=== PATIENT | female | born 1945 | race Caucasian/White ===

== ENCOUNTER 2021-08-05 22:45 | Emergency (ER) | payer MEDICARE, SELFPAY ==
[2021-08-05 22:47] VITALS: BP 154/85; PULSE 67; RESP 18; TEMP 36.8; O2SAT 95; BMI 29.2
--- NOTE | 2021-08-05 22:53 | EDS_ITS ---
HPI History of Present Illness Chief Complaint: Upper Extremity Injury Informant: patient and family Narrative Narrative: Patient had a mechanical slip and fall at home. She states she was wearing stockings. She had her right foot up on the steps and left foot on the ground. She reached around a corner to turn off a light switch. When she did this she leaned too far in her stocking foot on the right slid on the wooden step causing her to fall. She landed on her right wrist. She states she does not think she hit her head and there is no headache. This was a mechanical fall and not syncope. Her only complaint is the right wrist pain. Nothing else is hurting. She denies numbness and tingling. The splint made this better and motion or touching the area made it worse. Past medical history: High blood pressure, high cholesterol, breast cancer Medications are amlodipine, statin suppression therapy Allergy to sulfa partial mastectomy Non-smoker lives at home. [facility] Medical History Diverticulitis Home Medications oxycodone-acetaminophen [Percocet] 1 tab PO Q6H PRN 5 Days #20 tab 08/06/21 [Rx Last Taken Unknown] Allergy/AdvReac Type Severity Reaction Status Date / Time Sulfa (Sulfonamide Allergy Rash Verified 08/05/21 22:47 Antibiotics) Social History Smoking Status: Never smoker ROS ROS ED Eyes Eyes: Denies blurry vision or change in vision ENT ENT ED: Denies rhinorrhea Cardiovascular Cardiovascular: Denies chest pain, palpitations or racing heartbeat Respiratory/Chest Respiratory/Chest: Denies cough or dyspnea Gastrointestinal Gastrointestinal: Denies nausea or vomiting Musculoskeletal Musculoskeletal: Reports other Details: Right wrist pain. See history of present illness. ; Denies back pain or neck pain Integumentary Denies rash Neurologic Neurologic: Denies headache(s), paresthesias or weakness Hematologic/Lymphatic Hematologic/Lymphatic: Denies easy bleeding or easy bruising EXAM Physical Exam Const Vital Signs: 08/05/21 22:47 08/05/21 22:50 Temperature 98.2 F Temperature Source Temporal Pulse Rate 67 Respiratory Rate 18 Respiratory Effort Normal Non-Labored Respiratory Depth Normal Respiratory Pattern Normal Blood Pressure 154/85 H Blood Pressure Mean 108 Pulse Ox 95 Oxygen Delivery Method Room Air Positive well nourished and well developed Constitutional Narrative: Patient is in a splint on her right arm. This is a vacuum type splint. She actually looks quite comfortable. General Appearance ED: well developed and NAD HEENT normocephalic and atraumatic Eyes EOMs intact bilaterally Neck full ROM General: Negative for tenderness Chest Wall inspection of chest normal Resp normal respiratory effort and clear to auscultation bilaterally Cardio regular rate and regular rhythm GI non-tender and non-distended Palpation: soft Back/Spine Cervical Spine: Negative for cervical spine tenderness Extremity Extremity Narrative: Right upper extremity is in a vacuum splint. I can see the entire area. I can access most of her fingers. Sensation and small range of motion are intact. There is no tenderness of the proximal forearm elbow humerus or shoulder. We will get her meds for pain. We will take down the splint and get x-rays. Neuro moves all extremities, no focal motor deficits and no sensory deficits noted Sensorium / Orientation: alert Psych mental status grossly normal Skin Lesions: no lesions Rashes: no rashes MDM MDM MDM Narrative Medical decision making narrative: Initial images show distal radius fracture with significant displacement. There is also an ulnar styloid fracture. We discussed options. Patient was given pain meds through IV as well as some mild Ativan for relaxation. She was placed in finger traps. We did switch fingers. I then added a hematoma block with a total of 4 cc of a mixture 50% of 2% lidocaine and 0.5% bupivacaine. This provided very good anesthesia. Further hanging in the fingers plans as well as physical distraction and relocation of the fracture fragment improved the overall position. I was not able to get the distal radius fragment/portion further up. We did splinted while in finger traps. We did put a slight volar tilt. Postreduction films show improvement but still not anatomic on the lateral. She will need follow-up with orthopedics. She should return with numbness tingling worsening pain swelling or other concerns. We did recheck her after splinting. She had motion of the fingertips and good sensation and capillary refill. Discharge Plan Triage Chief Complaint: Upper Extremity Injury Other Complaint: Fall ED Provider: Wilmar Stringer Dx/Rx/DC Orders Clinical Impression: Fall from slipping, Colles' fracture of right radius, Hx of reduction of closed fracture Instructions: Wrist Fracture Prescriptions: New oxycodone-acetaminophen [Percocet] 5-325 mg tablet 1 tab PO Q6H PRN (Reason: pain) 5 Days Qty: 20 RF: 0 Referrals: ESE MCCARTHY [Other] Estevan Welch DO [STAFF PHYSICIAN] - 3-5 Days Disposition Disposition: Home, Self Care
[2021-08-05] MEDS: oxyCODONE 5 MG Tablet PO (22:54)
--- NOTE | 2021-08-05 23:00 | RAD_ITS ---
STUDY: X-RAY - RIGHT WRIST REASON FOR EXAM: Female, 76 years old. fall, trauma, pain TECHNIQUE: 3 view(s) of the wrist were obtained. COMPARISON: None. FINDINGS: An acute comminuted impaction fracture of the distal radial metaphysis and articular surface is present with moderate foreshortening and dorsal apex displacement of the distal fracture fragment. An acute transverse fractures also present through the base of the ulnar styloid. Moderate soft tissue swelling is present with deformity of the wrist. Normal radiocarpal articulation. Normal distal radioulnar articulation. Normal carpal bones. Normal carpal articulations. 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 Normal second through fifth carpometacarpal articulations. Normal visualized metacarpal bones. RAD/Wrist min 3 Views IMPRESSION: 1. Acute comminuted impaction fracture of the distal radial metaphysis and articular surface with dorsal displacement of the major distal fracture fragment 2. Acute ulnar styloid fracture Electronically Signed: Francisco Meng MD at 23:51 EST , Service support ,
[2021-08-05] MEDS: Ondansetron 4 MG/2 ML Vial IV (23:32)
[2021-08-05] MEDS: LORazepam 2 MG/ML Syringe 0.5 MG IV (23:32)
[2021-08-05] MEDS: Morphine 4 MG/ML Syringe IV (23:32)
[2021-08-05 23:37] VITALS: BP 146/71; PULSE 64; RESP 18; O2SAT 93
[2021-08-06] MEDS: Morphine 4 MG/ML Syringe IV (00:50)
[2021-08-06] MEDS: LORazepam 2 MG/ML Syringe 0.5 MG IV (00:55)
[2021-08-06] MEDS: Bupivacaine Mpf 0.5% 30 ML VIAL INFILT (01:38)
[2021-08-06] MEDS: Lidocaine 2% (20 ml mdv) 20 ML Vial 10 ML INFILT (01:38)
--- NOTE | 2021-08-06 02:24 | RAD_ITS ---
STUDY: X-RAY - RIGHT WRIST REASON FOR EXAM: Female, 76 years old. Post reduction TECHNIQUE: 3 view(s) of the wrist were obtained. COMPARISON: None. FINDINGS: Improved alignment at the fracture site in the distal radius. Displaced fracture of the ulnar styloid. Normal carpal bones. Normal carpal articulations. Normal carpometacarpal articulation of the thumb. Normal second through fifth carpometacarpal articulations. Normal visualized metacarpal bones. The soft tissue structures are unremarkable. RAD/Wrist min 3 Views IMPRESSION: Improved alignment at the fracture site in the distal radius. Displaced fracture of the ulnar styloid. Electronically Signed: Sawyer Daniel MD at 3:10 EST Tel , Service support ,
[2021-08-06 02:59] VITALS: BP 118/72; PULSE 55; RESP 16; O2SAT 90
== END 2021-08-06 03:37 | disposition home or self-care (01) ==
PROVIDERS: Emergency Provider Emergency Medicine
DX: S52.531A Colles' fracture of right radius, initial encounter for closed fracture (principal); W19.XXXA Unspecified fall, initial encounter; Z85.3 Personal history of malignant neoplasm of breast
CPT/HCPCS: 29125; 73110; 96374; 96375; 96376; 99285; A4216; J2405

== ENCOUNTER 2021-08-12 09:17 | Day surgery (SDC) | payer MEDICARE, SELFPAY ==
--- NOTE | 2021-08-11 12:22 | EKG12_ITS ---
Test Reason : PRE-OP Blood Pressure : / mmHG Vent. Rate : 060 BPM Atrial Rate : 060 BPM P-R Int : 130 ms QRS Dur : 080 ms QT Int : 424 ms P-R-T Axes : -05 000 029 degrees QTc Int : 424 ms Normal sinus rhythm Low voltage QRS Borderline ECG Confirmed by JYOTI PETERS, MIHAI ([id number]), commissioning editor JULIET MA ([id number]) on 08/12/2021 10:27:50 AM Referred By: Estevan Welch Confirmed By:MIHAI MONTES MD
[2021-08-11 13:46] LABS: Hematocrit 40.6 % (37-47); Hemoglobin 12.9 g/dL (12.0-15.0); Mean Corp Hgb Conc 31.8 g/dL (32-36); Mean Corpuscular Hgb 29.5 pg (27.0-32.0); Mean Corpuscular Volume 92.9 fL (81-99); Mean Platelet Vol. 9.9 fl (6.2-12.0); Platelet Count 330 K/mm3 (150-450); RBC Distribution Width CV 12.7 % (11.6-14.6); RBC Distribution Width SD 43.3 fl (35.1-43.9); Red Blood Count 4.37 M/mm3 (4.2-5.4); White Blood Count 8.7 K/mm3 (4.4-11.0)
[2021-08-12] VITALS (8 sets, daily range): BP systolic 116–144; BP diastolic 55–83; PULSE 55–63; RESP 12–18; TEMP 36–37.2; O2SAT 93–98; BMI 27.0
[2021-08-12] MEDS: Lactated Ringers 1,000 ML 15 ML IV (09:45)
--- NOTE | 2021-08-12 10:00 | RAD_ITS ---
STUDY: X-RAY - RIGHT WRIST REASON FOR EXAM: Intraoperative fluoroscopy for ORIF of distal radial fracture. TECHNIQUE: 3 intraoperative images of the wrist were obtained. COMPARISON: Radiographs 08/06/2021. FINDINGS: There is an orthopedic plate and screws transfixing a distal radial fracture in anatomical alignment and position. 79.9 seconds of fluoroscopy time was used. Electronically Signed: Samuel Osman MD at 13:37 EST Tel , Service support , RAD/Wrist min 3 Views
--- NOTE | 2021-08-12 10:36 | HP.PCM_ITS ---
History and Physical Date [facility] Ad[facility]: [facility] [id number] [facility] [address] [place] [address] [phone] OFFICE VISITDate of Service: 08/11/21 MR#:[id number]: BREE [id number] #:[id number] Provider:Dr. Estevan Welch, DOAge/Sex: 76/F Location:Javier:Signed Intake Intake Visit Reasons: right wrist Allergies Sulfa (Sulfonamide Antibiotics) Allergy (Verified 08/11/21 08:15) Rash Medications oxycodone-acetaminophen [Percocet] 1 tab PO Q6H PRN 5 Days #20 tab 08/06/21 [Rx Confirmed 08/11/21] amlodipine [Norvasc] 5 mg PO DAILY 08/11/21 [History Confirmed 08/11/21] anastrozole 1 mg PO DAILY 08/11/21 [History Confirmed 08/11/21] ascorbic acid (vitamin C) [Vitamin C] 500 mg PO DAILY 08/11/21 [History Confirmed 08/11/21] atorvastatin 10 mg PO DAILY 08/11/21 [History Confirmed 08/11/21] calcium carbonate-vitamin D3 [Calcium + D] 1 tab PO DAILY 08/11/21 [History Confirmed 08/11/21] cholecalciferol (vitamin D3) [Vitamin D3] 25 mcg PO DAILY 08/11/21 [History Confirmed 08/11/21] fiber [Fiber Choice] 1 tab PO DAILY 08/11/21 [History Confirmed 08/11/21] lactobacillus combination no.4 [Probiotic] 3,000 mmu cells PO DAILY 08/11/21 [History Confirmed 08/11/21] multivitamin 1 cap PO DAILY 08/11/21 [History Confirmed 08/11/21] sertraline [Zoloft] 50 mg PO DAILY 08/11/21 [History Confirmed 08/11/21] PFSH Medical History Anxiety Back pain Cancer Cardiology follow-up encounter Depression Diverticulitis High cholesterol History of diverticulitis History of echocardiogram History of edema History of lump of left breast History of lump of right breast Hx of mitral valve prolapse Hypertension Leg cramps Non-smoker Surgical History (Updated 08/11/21 @ 08:30 by Livier Peñaloza) Hx of cervical discectomy Hx of colonoscopy Social History Smoking Status: Never smoker HPI right wrist Details: Parts of this documentation were recorded by a scribe, this documentation accurately reflects the service provided and the decisions made by me, Dr. Estevan Welch DO 08/11/21 0752Emani DAILEY is a 76 year old F here today for right wrist fx. She was referred by [facility] ER. She had a fall on 08/05/2021 at her daughters house, she is visiting from [place]. SHe states that her foot went out from under her and she fell inside and tried to catch herself with the right hand. SHe then went to the ER. She is starting to have numbness and tingling of the index finger. Has been elevating the arm over the weekend. she is LHD Ortho Exam General General: Yes no acute distress Neurologic: Yes alert and Yes oriented x3 Psychologic: Yes reasonable and appropriate Right Wrist/Hand Date of injury: 08/05/21 Skin/Wound: Yes Swelling, Yes Ecchymosis and Yes capillary refill normal WRIST: moderate swelling positive wrinkle sign splint irritation but no open wounds able to move fingers sensation intact to light touch some numbness at the MCP of index from splint pressure. Left Wrist/Hand Skin/Wound: Yes Swelling and Yes Ecchymosis Supplemental Info 08/05/2021 pre and postreduction x-rays of the right wrist demonstrate a comminuted distal radius fracture with dorsal displacement and angulation ulnar styloid fracture it is intra-articular into the radiocarpal and distal radial ulnar joint Coding Level of Care Code Off vis,new,level 3 Diagnoses Colles' fracture of right radius S52.531A Encounter type: initial encounter Fracture type: closed Assessment and Plan Assessment and Plan (1) Colles' fracture of right radius: Status: Acute Qualifiers: Encounter type: initial encounter Fracture type: closed Qualified Code(s): S52.531A - Colles' fracture of right radius, initial encounter for closed fracture Plan - Dr. Estevan Welch, DO: Personally reviewed patients xrays of the right wrist. Patient educated that she has a distal radius fx of the right wrist it is intra-articular comminuted and displaced educated that after the reduction at the ER the fx site was moved some but this is still not in good alignment therefore it is recommended that she has a right distal radius ORIF. Educated that after the surgery she will not be able to lift, push or pull anything with this hand/wrist. Patient educated that we can preform the surgery for her and she will need OT after the surgery. If she wishes to return back to [place] she can and just have OT in [place]. She will return to the office 1 week post op to check the incision, will not have the sutures removed for 2 weeks post op. She will not take anymore ibuprofen or aleve at this time. She can take the tylenol and Oxycodone for pain. Reviewed the pre- operative plans with the patient. Risks and benefits of the procedure were fully explained, including but not limited to infection, neurovascular injury, continued pain, arthritis, stiffness, need for further surgery, re-injury, DVT, PE, general risks of anesthesia, and loss of limb or life. The patient understands all the risks and does wish to proceed with written consent, she is scheduled for surgery tomorrow 08/12/2021. New splint given today. Follow up 1 week post op for incision check sutures will remain in for 2 weeks postop we will or sooner if pain, swelling, numbness or associated symptoms, or concerns develop. All questions answered. Patient in agreement of plan. 08/11/21 1308<Electronically signed by Estevan Welch DO>Date Estevan Welch DO I have re-examined the patient. There are no clinical changes since date of exam
[2021-08-12] MEDS: Cefazolin 2 GM in 0.9% Normal Saline 100 ML IV (10:55)
--- NOTE | 2021-08-12 12:33 | EX.PCM.DISCH ---
Discharge Instructions Activity Keep extremity elevated above heart level: Operative Extremity Dressing / Incision Additional Dressing/Incision Instructions:: keep hand elevated above heart. encourage finger range of motion but no lifting pushing or pulling at all with operative extremity. do not remove splint, keep clean and dry. do not stick anything inside of splint. call with any questions or concerns. may supplement pain medication with tylenol and OTC NSAID to minimize narcotic usage. Follow Up Care Please Follow Up With: janine When: 1 week. Test Results: Test results from this visit will be discussed in further detail at your follow-up appointment, if applicable. Discharge Plan Admission Attending Provider: Estevan Welch Primary Care Provider: Care Physician,No Primary Consulting Providers: Heath Anderson Discharge Orders/Prescriptions Prescriptions: New oxycodone 5 mg tablet 5 - 10 mg PO Q4H PRN (Reason: pain) 5 Days Qty: 30 RF: 0 No Action oxycodone-acetaminophen [Percocet] 5-325 mg tablet 1 tab PO Q6H PRN (Reason: pain) 5 Days Qty: 20 RF: 0 anastrozole 1 mg Tablet 1 mg PO DAILY RF: 0 atorvastatin 10 mg Tablet 10 mg PO DAILY RF: 0 amlodipine [Norvasc] 5 mg Tablet 5 mg PO DAILY RF: 0 calcium carbonate-vitamin D3 [Calcium + D] 600 mg(1,500mg) -200 unit Tablet 1 tab PO DAILY RF: 0 ascorbic acid (vitamin C) [Vitamin C] 500 mg Capsule, Extended Release 500 mg PO DAILY RF: 0 multivitamin Capsule 1 cap PO DAILY RF: 0 sertraline [Zoloft] 50 mg Tablet 50 mg PO DAILY RF: 0 Fiber Choice Tablet,Chewable 1 tab PO DAILY RF: 0 cholecalciferol (vitamin D3) [Vitamin D3] 25 mcg (1,000 unit) Tablet,Chewable 25 mcg PO DAILY RF: 0 Probiotic 3 billion cell Capsule 3,000 mmu cells PO DAILY RF: 0 Referrals / Follow Up: Care Physician,No Primary [Primary Care Provider] - Disposition Disposition (needs filled in before D/C Order can be placed): Home, Self Care
--- NOTE | 2021-08-12 12:50 | OP.PCM_ITS ---
Report of Operation Date of Procedure: 08/12/21 Description of Surgical Findings:: Preoperative diagnosis: Comminuted intra- articular distal radius fracture with greater than 3 fragments Postoperative diagnosis: Same Procedure: ORIF of the distal radius Implants: Synthes distal radius variable angle locking plate Tourniquet time: 60 minutes 250mmhg Complications: None Indication for procedure: 76-year-old female who had a ground-level fall onto an outstretched hand did have a significantly comminuted and initially significantly displaced fracture she was reduced to the emergency room department and splinted and sent to my office for follow-up, patient maintained significant dorsal tilt post reduction we discussed risks benefits and alternatives of conservative versus surgical intervention. Including the risk of bleeding infection nerve artery tissue damage need for further surgery continued pain postoperative stiffness need for postoperative physical therapy and the expected postoperative course. Procedure: The patient was met in the preoperative holding area the operative extremity was identified by both patient and physician and marked. Patient was met by anesthesia she was brought back to the operating room on a wheeled cart and transferred to the operating table in the supine position anesthesia was started. A well-padded tourniquet was placed on the upper arm of the operative extremity. She was prepped and draped in the usual sterile fashion. A Time out was called to ensure the proper patient procedure and extremity were being contemplated. A 15 blade scalpel was used to make a linear incision over the FCR tendon this was carried down through the skin and subcutaneous tissue. Electrocautery was used to maintain hemostasis. Jenelle retractors were used. The FCR tendon sheath was incised and the FCR tendon was mobilized radially. A deep blade scalpel was used to perforate the fascia of the deep FCR tendon sheath and Littler scissors were used to dissect proximally and distally. Blunt dissection was performed a eber was placed on the radial and ulnar side of the radius. The pronator quadratus was partially torn from the injury and was released off the radial border of the radius with electrocautery and was elevated with a shaffer elevator. The Hohmann retractors were then placed deep to this muscle. The fracture site was visualized and was freed of hematoma and clot debris with the use of small rongeur and [place]. There was significant comminution of the distal radius the ulnar border was impacted and was elevated with a [place] elevator and there is a volar Villarreal component, in addition the articular surface was split in a transverse orientation with dorsal comminution, the fracture was then reduced with the use of a [place] and ulnar deviation and wrist flexion. We then temporarily fixed styloid with a K wire this was checked under fluoroscopy to ensure that an adequate reduction could be performed. A plate was then positioned over the fracture site and temporarily fixed to the bone with K wires. The plate had to be placed more distal than typical due to the small volar [place] fragment to capture this piece with the edge of the plate, A cortical screw was then placed in the shaft and sequential locking screws initially placed in the ulnar styloid and the plate was used as a reduction tool to help shift the styloid into place the articular surface was well aligned but there maintained residual step-off of styloid cortical border , we then placed locking screws in the distal fragment [place] holes and cortical screws in the proximal shaft were placed distally this was checked on both AP and lateral projections to ensure screw placement was not penetrating the joint and was in the proper location. Bone drill sleeve was used for the radial styloid screw and a variable angle fashion. The remainder of the cortical screws were placed in the shaft. And the fracture and hardware were visualized in both AP and lateral projections in good alignment and fracture positioning. The wound was thoroughly irrigated. Pronator quadratus was not repairable. A subcutaneous stitch with 3-0 Vicryl was performed followed by 4-0 nylon vertical mattress stitches. Followed by Xeroform 4 x 4 ABD web roll stockinette more web roll a volar plaster splint and an Warner wrap. The tourniquet was let down. There was no complications intraoperatively and the patient was brought back to the PACU in stable condition she received an axillary block. All counts were correct.
[2021-08-12] MEDS: Cefazolin 1 GM/50 ML BAG IV (13:48)
== END 2021-08-12 15:12 | disposition home or self-care (01) ==
LOC: SDC 09:26 → AC 09:26
PROVIDERS: Anesthesiology; Referring Provider Orthopaedic Surgery; Visit Provider Orthopaedic Surgery
PROC: (CPT 25609; principal; 2021-08-12 10:35)
DX: S52.531A Colles' fracture of right radius, initial encounter for closed fracture (principal); W19.XXXA Unspecified fall, initial encounter; Y93.9 Activity, unspecified; Y92.009 Unspecified place in unspecified non-institutional (private) residence as the place of occurrence of the external cause; Y99.9 Unspecified external cause status; F41.9 Anxiety disorder, unspecified; F32.A Depression, unspecified; I10 Essential (primary) hypertension; R20.0 Anesthesia of skin; R20.2 Paresthesia of skin; E78.00 Pure hypercholesterolemia, unspecified; Z79.899 Other long term (current) drug therapy
CPT/HCPCS: 25609; 64417; 36415; 73110; 76000; 85027; 87426; 93005; C1713; C9803; J7120; J2405

== ENCOUNTER 2023-08-25 17:00 | Outpatient (RCR) | payer MEDICARE, SELFPAY ==
--- NOTE | 2023-08-12 18:49 | HP.PTEVAL_ITS ---
Patient's Visit Information Visit Information Visit Information: BREE DAILEY is a 78 year old F referred to Physical Therapy by Dr. Estevan Welch DO with a diagnosis of UNSPECIFIED FRACTURE OF SHART OF TIBIA ,ENCOUNTER AFTERCARE. Date of Evaluation: 08/12/23 Physical Therapist: Jermain Colvin, PT, Cert MDT, OCS Visit Plan Frequency: 2x /Week Duration: 6 Weeks Plan: S/P TIBIA KALEE AND ORIF ANKLE JUN 05 WBAT WITH CAM BOOT FWW RTD 08/16 PT INTERVETIONS ROM ANKLE ,STRETCHING CALF ,STENGTHENING ANKLE/HIP/KNEE ,PROGRESSING WB ,GAIT AND BALANCE TRAINING VASO NEEDED Subjective Subjective: This 78 y/o female presents to physical therapy with closed fracture tibia. Patient. fracture left tibia Jun 04 from fall ,thus underwent s/p inte rmedullary kalee with ORIF screw fixation of medial malleolus an plate screw of distal fibula Jun 05 at [facility] done by Loreta. Initially ,patient was NWB with CAM boot and fww and used W/C. Patient progressed to TTWB to PWB and on 08/02 okay with WBAT with CAM boot. Patient had x-rays looked good. No pain medication. Patient lives with daughter plans to move [place] in October. Patient has edema . Patient denies paresthesia/tingling . Patient lives in 2 story home 5 steps with rail and 15 steps 2nd floor. Patient using tub with Chair. Patient had [facility] PT ~ 5 visits. Patient is able to bath dress self but need assist with cooking. Patient condition affects QOL. RTD Aug 16. Patient goals walk normal. SOCIAL: single VOCATION: retired Objective Objective: POSTURE: frontal plane mechanics pes planus mild valgus valgus SKIN: dry incision well approximate distal and proximal tibia NEURO: denies paresthesia/tingling GAIT: Ambulated with FWW with CAM boot with instruction with WBAT LLE with reciprocal pattern decrease stance time LLE BALANCE: fair+ with fww AROM ANKLE: dorsiflexion 0 degrees ,plantarflexion 60 degrees ,eversion 20 degrees ,eversion 2 degrees AROM KNEE : supine knee flexion 0-130 degrees MMT: ( peak force) ankle dorsiflexion 12.3,plantarflexion 16.5 ,peroneus 5.9 ,posterior tibialis 5.8,quads 23.3,hamstrings 16.2 Balance/Special Test Scores Lower Extremity Functional Score: 26 Goals Goal 1:: Patient to be I with HEP for ankle Goal Time Frame: 4-6 Weeks Goal 2:: Patient to to ambulate with normal ruchi with/without cane Goal Time Frame: 4-6 Weeks Goal 3:: Patient to increase AROM ankle by 5 degrees all planes of motion to improve function and gait Goal Time Frame: 4-6 Weeks Goal 4:: Patient to improve improve peak force quads/hams/hip by 5-10# strength to improve gait and function Goal Time Frame: 4-6 Weeks Goal 5:: Patient to improve LFES score by 5-10m points to improve QOL and function Goal Time Frame: 4-6 Weeks Goal 6:: Patient to demonstrate 50% improvement with increase gait and function Goal Time Frame: 4-6 Weeks Rehabilitation Potential Physical Therapy Diagnosis: This underwent s/p surgery tibia shaft kalee and ORIF on Jun 05 with decrease gait ,balance ,ROM ankle ,strength ankle and quads/hams thus benefit from skilled PT Rehabilitation Potential: Fair Anticipated Interventions Patient/Client Instruction: Educate patient on: Condition and Plan of Care For the Purpose of:: To decrease pain, To increase ROM, To improve muscle performance and motor function, To improve ability to perform ADL's, To increase tolerance to activity/condition/position, To improve performance and independence with ADL's, To improve ability of physical actions for home/community/work/leisure, To improve health of tissue, To decrease soft tissue restriction, To increase flexibility/ROM, To improve endurance, To improve balance and To improve safety with gait Therapeutic Exercise to Include: Strength training, Endurance training, Balance training, Postural training, Flexibilty training, Gait and locomotor training and Active ROM For the Purpose of:: To decrease pain, To increase ROM, To improve muscle performance and motor function, To improve ability to perform ADL's, To increase tolerance to activity/condition/position, To improve ability of physical actions for home/community/work/leisure, To improve gait and locomotor functions, To improve health of tissue, To decrease soft tissue restriction and To increase flexibility/ROM Cryotherapy (ice pack, ice massage): Yes Vasopneumatic device: Yes For the Purpose of:: To decrease pain, To increase ROM, To improve health of tissue and To decrease soft tissue restriction Text: Thank you for the opportunity to evaluate your patient. For Medicare and Medicare HMO plans, please review the plan of care and approve it. It will need to be FAXED BACK to us at [phone] for Medicare purposes. For Medicare only, by signing this I certify the plan of care. Please let me know if there are questions or concerns regarding this plan of car e. Physician Signature: Date:
== END 2023-08-25 19:00 | disposition home or self-care (01) ==
LOC: PT 17:00
PROVIDERS: Referring Provider Orthopaedic Surgery; Visit Provider Orthopaedic Surgery
DX: S82.209D Unspecified fracture of shaft of unspecified tibia, subsequent encounter for closed fracture with routine healing (principal); Z47.89 Encounter for other orthopedic aftercare
CPT/HCPCS: 97110; 97162